=== PATIENT | female | born 1980 | race Caucasian/White ===

== ENCOUNTER 2021-01-28 07:19 | Day surgery (SDC) | payer BC ==
[~2021-01-28 07:19] MED LIST: Bupivacaine 0.5% 30 ML SDV ONE; Povidone-Iodine 10% Soln 118.25 ML Bottle ONE
[2021-01-28] MEDS ORDERED: Lactated Ringers 1,000 ML IV SCH (07:45)
[2021-01-28] MEDS: Nozin Nasal Sanitizer NASBOTH SCH ×3 (08:09→20:19)
[2021-01-28] MEDS ORDERED: ceFAZolin 2 GM in Premix Bag 1 BAG IV ONE (08:30)
[2021-01-28] MEDS ORDERED: fentaNYL 100 MCG/2 ML SDV ONE (08:37)
[2021-01-28] MEDS ORDERED: Propofol 200 MG/20 ML SDV ONE ×2 (08:37→09:58)
[2021-01-28] MEDS ORDERED: Midazolam 1 MG/ML 2 ML SDV ONE ×2 (08:38→10:03)
[2021-01-28] MEDS ORDERED: Lactated Ringers 1,000 ML ONE (10:54)
[2021-01-28] MEDS ORDERED: Acetaminophen/HYDROcodone 325-5 MG Tab PO PRN (11:09)
[2021-01-28] MEDS ORDERED: Ondansetron 4 MG/2 ML SDV IVPUSH PRN (11:09)
[2021-01-28] MEDS ORDERED: Morphine 2 MG/ML SYRINGE IVPUSH PRN (11:09)
[2021-01-28] MEDS ORDERED: Acetaminophen 325 MG Tab PO PRN (11:09)
[2021-01-28] MEDS ORDERED: Ketorolac 30 MG/ML SDV IVPUSH PRN (11:09)
[2021-01-28] MEDS ORDERED: Sodium Chloride 0.9% 1,000 ML IV SCH (11:15)
[2021-01-28] MEDS: Acetaminophen/oxyCODONE 325-5 MG Tab PO PRN ×3 (12:09→20:20)
--- NOTE | 2021-01-28 15:07 | CR ---
Knee 1V or 2V Rt CLINICAL HISTORY: Arthroplasty FINDINGS: Patient is status post the medial hemiarthroplasty. Components appear well seated. There is intra-articular and subcutaneous air.
[2021-01-28] MEDS: ceFAZolin 1 GM in Premix Bag 1 BAG IV SCH (16:16)
[2021-01-28] MEDS: Docusate Sodium 100 MG Cap PO SCH (20:21)
[2021-01-29] MEDS: Acetaminophen/oxyCODONE 325-5 MG Tab PO PRN ×5 (00:42→17:17)
[2021-01-29] MEDS: ceFAZolin 1 GM in Premix Bag 1 BAG IV SCH ×2 (00:43→10:00)
[2021-01-29 07:21] VITALS: BP 107/62; PULSE 66
[2021-01-29] MEDS ORDERED: Non-Formulary Medication 1 Each (Progesterone, Micronized [Progesterone] 100 MG Capsule) PO SCH (09:00)
[2021-01-29] MEDS ORDERED: Enoxaparin 30 MG/0.3 ML Syringe SUBCUT SCH (09:00)
[2021-01-29] MEDS ORDERED: Sertraline 50 MG Tab PO SCH (09:00)
[2021-01-29] MEDS: Docusate Sodium 100 MG Cap PO SCH (09:59)
[2021-01-29] MEDS: Nozin Nasal Sanitizer NASBOTH SCH (10:00)
--- NOTE | 2021-01-29 12:23 | PCM.DCSUM1 ---
Discharge Summary - Hospital Course Brief History: Patient is a pleasant 40 y/o female, chronic right knee pain with symptoms refractory to conservative management. Xrays revealed osteoarthritic changes of the medial compartment, well preserved spacing of the lateral and patellofemoral compartments. Elected to undergo a partial knee arthroplasty of the medial compartment. Tolerated surgery well with no complications. No acute events post-operatively. Discharged to home with outpatient physical therapy orders. Diagnosis: Stroke: No Modified [place] Scale: No Symptoms at All Modified [place] Scale Score: 0 - Discharge Data Discharge Date: 01/29/21 Discharge Disposition: Home, Self-Care 01 Condition: Good - Referral to Home Health Date of Face to Face Encounter: 01/29/21 Reason for Homebound Status: motivated to go home. Independent with ADLs Primary Care Physician: Paradise Rojas MD - Discharge Diagnosis/Problem(s) (1) Status post right partial knee replacement SNOMED Code(s): 806306586, [id number], [id number], [id number] ICD Code: Z96.651 - PRESENCE OF RIGHT ARTIFICIAL KNEE JOINT Status: Acute Current Visit: Yes - Patient Summary/Data Operative Procedure(s) Performed: right partial knee medial compartment arthroplasty Consults: Consultations 01/28/21 11:09 Consult to Case Management/Military Logistics Specialist [CONS] Routine Comment: Physician Instructions: Service(s) to be Consulted: Case Management Reason for Consult: Plan for Discharge OT Evaluation and Treatment [CONS] Routine Please Evaluate and Treat. OT Reason for Consult: ADL's Special Instructions: s/p right medial partial knee arthroplasty This query below is only for informational purposes and is not editable. PT Evaluation and Treatment [CONS] Routine Please Evaluate and Treat. PT Reason for Consult: Post op Ortho Surgery Special Instructions: s/p right medial partial knee arthroplasty This query below is only for informational purposes and is not editable. PT Evaluation and Treatment [CONS] Routine Please Evaluate and Treat. PT Reason for Consult: Post op Ortho Surgery Knee Pending Discharge: Yes, 1- 2 days Special Instructions: Schedule first outpatient PT appointment in 3-5 day post discharge. This query below is only for informational purposes and is not editable. Hospital Course: Patient is a pleasant 40-year-old female, status post right knee medial compartment arthroplasty. Patient tolerated surgery well with no complications. No acute events during the postoperative hospitalization. Patient was hemodynamically stable throughout hospital stay, vitals remained within acceptable limits. Postop day #1 hemoglobin stable at 12.0. White count slightly elevated at 11.4. Patient denied subjective fevers, chills, fatigue, dyspnea, nor chest pain. Has been using incentive spirometer. Patient does take naltrexone per baseline. This medication was held postoperatively to allow for adequate utilization of pain control medications. Did initially have some nausea with administration of Percocet, but this impr jude when medication was administered with food. Patient tolerated regular diet well. Denied any further episodes of nausea or emesis. Patient participated in physical therapy daily while hospitalized. Patient's ambulation abilities progressed nicely, utilizing four-wheel walker and ambulating up to 100 ft. Was able to safely demonstrate ability to complete stairs with therapy prior to discharge, as patient has 19 stairs in her house. Demonstrated competency with transfers from bed to chair. Demonstrated competency completing ADLs with minimal assistance. IV was saline locked the evening of surgery. Dressing change performed postop day #1 by orthopedic provider. Exam: R LE neurovascular intact. Posterior tibial pulse, 2+. Negative Homans sign. Postoperative diffuse swelling of knee, extending into calf. No significant pedal edema. Minimal ecchymosis along medial knee and calf. Incision is well approximated, steristrips intact above incision with mild dried doe inage. No surrounding erythema nor active drainage. Mild warmth to touch of knee. ROM: 4-60. - Patient Instructions Diet: Regular Diet as Tolerated Activity: Apply Ice, Elevate Extremity, Full Weight Bearing, No Strenuous Activities Driving: Do Not Drive Showering/Bathing: Shower in AM Wound/Incision Care: Keep Operative Site/Wound Site Clean and Dry, Change Dressing Daily (leave dressing on through 01/30/21. May then remove for shower. If no active drainage or irritation, does not need to change dressing daily. ) Notify Provider of: Fever, Increased Pain, Swelling and Redness, Drainage - Discharge Plan *PRESCRIPTION DRUG MONITORING PROGRAM REVIEWED*: Yes *COPY OF PRESCRIPTION DRUG MONITORING REPORT IN PATIENT JESSICA: Not Applicable Prescriptions/Med Rec: Aspirin [Aspirin EC] 325 mg PO BID #60 Acetaminophen/oxyCODONE [Percocet 325-5 MG] 1 - 2 tab PO Q6HR PRN #40 tab PRN Reason: Pain Home Medications: Home Meds Cholecalciferol (Vitamin D3) [Vitamin D3] 5,000 unit PO DAILY 05/12/19 [History] Progesterone, Micronized [Progesterone] 100 mg PO DAILY 05/12/19 [History] Sertraline [Zoloft] 100 mg PO DAILY 05/12/19 [History] Naltrexone 50 mg PO DAILY 01/03/21 [History] Progesterone/Testosterone 1 trouche PO DAILY 01/28/21 [History] Vit A/D3/E/Iod/Zinc/Selen/Herb [Medcaps T3 Capsule] 1 tab PO DAILY 01/28/21 [History] Acetaminophen/oxyCODONE [Percocet 325-5 MG] 1 - 2 tab PO Q6HR PRN #40 tab 01/29/21 [Rx] Aspirin [Aspirin EC] 325 mg PO BID #60 01/29/21 [Rx] Oxygen Therapy Mode: Room Air Patient Handouts: Preventing Problems After Surgery, How to Prevent Constipation After Surgery, Partial Knee Replacement, Care After Referrals: Yogesh Taylor, PT [Physical Therapist] - 02/05/21 1:00 pm (Please arrive 15 minutes early to register for your appointment.) Warren Lee PA [Ordering Only Provider] - 02/12/21 1:00 pm (Please arrive 15 minutes early to register for your appointment.) - Discharge Summary/Plan Comment DC Time >30 min.: No Total # of Minutes for Discharge Time: 20 Discharge Summary/Plan Comment: -Discharge to home this afternoon. Outpatient PT has been arranged -Prescription sent for pain control: 5mg-325mg Percocet, 1-2 tabs PO q6 hrs prn for pain. Instructed to discontinue home-Naltrexone while on this medication. Wait 3-4 days after discontinuing pain medication prior to resuming Naltrexone -Encouraged continuation of stool softener while on opioid pain medication -Educated patient on warning signs of DVT/VTE and SSI; any concerns, she should contact the clinic or visit her local ER -Educated to take 1 aspirin (81 mg or 325 mg) BID for DVT/VTE prophylaxis -Continue with Nozin spray BID -May shower; leave Steristrips on and let water run over the top. They will fall off in 5-7 days. Do not vigorously scrub incision, no submerging incision in bath water. Do not need to place dressing over incision, but may choose to do so if Steristrips are catching on clothing. -Follow up with orthopedics in 2 weeks; contact clinic with any concerns or questions that arise prior to scheduled apt. - General Info Date of Service: 01/29/21 Admission Dx/Problem (Free Text: s/p right knee partial arthroplasty Functional Status: Reports: Pain Controlled, Tolerating Diet, Ambulating (with FWW), Urinating, Incentive Spirometry - Review of Systems General: Denies: Fever, Fatigue, Malaise, Chills Pulmonary: Denies: Shortness of Breath Cardiovascular: Denies: Chest Pain, Palpitations, Lightheadedness Gastrointestinal: Reports: No Symptoms Genitourinary: Reports: No Symptoms Musculoskeletal: Reports: Leg Pain (right ), Joint Pain (right knee ), Joint Swelling (right knee ) Skin: Reports: Bruising Neurological: Reports: No Symptoms Psychiatric: Reports: No Symptoms - Patient Data Vitals - Most Recent: Last Vital Signs Temp 96.2 F L 01/29/21 07:21 Pulse 66 01/29/21 07:21 Resp 16 01/29/21 07:21 BP 107/62 01/29/21 07:21 Pulse Ox 97 01/29/21 07:21 Weight - Most Recent: 171 lb Lab Results - Last 24 hrs: Laboratory Results - last 24 hr 01/29/21 Range/Units 05:54 WBC 11.4 H (4.5-11.0) K/uL RBC 4.07 (3.30-5.50) M/uL Hgb 12.0 (12.0-15.0) g/dL Hct 35.4 L (36.0-48.0) % MCV 87 (80-98) fL MCH 30 (27-31) pg MCHC 34 (32-36) % Plt Count 279 (150-400) K/uL Med Orders - Current: Current Medications Acetaminophen (Acetaminophen 325 Mg Tab) 650 mg PO Q4H PRN PRN Reason: Pain/Fever Hydrocodone Bitart/Acetaminophen (Acetaminophen/Hydrocodone 325-5 Mg Tab) 1 tab PO Q4H PRN PRN Reason: Pain (mild 1-3) Bandage/Support Products (Nozin Nasal [employer]) 1 applic NASBOTH BID KAMI Last Admin: 01/29/21 10:00 Dose: 1 applic Documented by: Docusate Sodium (Docusate Sodium 100 Mg Cap) 100 mg PO BID [facility] Last Admin: 01/29/21 09:59 Dose: 100 mg Documented by: Enoxaparin Sodium (Enoxaparin 30 Mg/0.3 Ml Syringe) 30 mg SUBCUT DAILY [facility] Last Admin: 01/29/21 09:58 Dose: 30 mg Documented by: Sodium Chloride (Normal Saline) 1,000 mls @ 125 mls/hr IV ASDIRECTED [facility] Ketorolac Tromethamine (Ketorolac 30 Mg/Ml Sdv) 15 mg IVPUSH Q8H PRN PRN Reason: Breakthrough Pain Stop: 02/01/21 11:10 Last Admin: 01/28/21 13:42 Dose: 15 mg Documented by: Morphine Sulfate (Morphine 2 Mg/Ml Syringe) 1 mg IVPUSH Q1H PRN PRN Reason: Breakthrough Pain Last Admin: 01/28/21 14:41 Dose: 1 mg Documented by: Non-Formulary Medication (Progesterone, Micronized [Progesterone]) 100 mg PO DAILY [facility] Progesterone/Testosterone Trouche Ptom 0 trouche BUCCAL BEDTIME [facility] Ondansetron HCl (Ondansetron 4 Mg/2 Ml Sdv) 4 mg IVPUSH Q6H PRN PRN Reason: Nausea/Vomiting Oxycodone/Acetaminophen (Acetaminophen/Oxycodone 325-5 Mg Tab) 1 - 2 tab PO Q4H PRN PRN Reason: Pain Last Admin: 01/29/21 09:16 Dose: 2 tab Documented by: Sertraline HCl (Sertraline 50 Mg Tab) 100 mg PO DAILY [facility] Last Admin: 01/29/21 09:58 Dose: 100 mg Documented by: Discontinued Medications Bandage/Support Products (Nozin Nasal [employer]) 1 applic NASBOTH BID [facility] Last Admin: 01/28/21 14:55 Dose: Not Given Documented by: Bupivacaine HCl (Bupivacaine 0.5% 30 Ml Sdv) Confirm Administered Dose 30 ml .ROUTE .STK-MED ONE Stop: 01/28/21 06:50 Fentanyl (Fentanyl 100 Mcg/2 Ml Sdv) Confirm Administered Dose 100 mcg .ROUTE .STK-MED ONE Stop: 01/28/21 08:38 Cefazolin Sodium/Dextrose 2 gm (/ Premix) 50 mls @ 100 mls/hr IV ONETIME ONE Stop: 01/28/21 08:59 Last Admin: 01/28/21 09:35 Dose: 100 mls/hr Documented by: Lactated Ringer's (Ringers, Lactated) 1,000 mls @ 75 mls/hr IV ASDIRECTED [facility] Last Admin: 01/28/21 08:03 Dose: 75 mls/hr Documented by: Lactated Ringer's (Ringers, Lactated) Confirm Administered Dose 1,000 mls @ as directed .ROUTE .STK-MED ONE Stop: 01/28/21 10:55 Cefazolin Sodium/Dextrose 1 gm (/ Premix) 50 mls @ 100 mls/hr IV Q8H [facility] Stop: 01/29/21 09:29 Last Admin: 01/29/21 10:00 Dose: 100 mls/hr Documented by: Midazolam HCl (Midazolam 1 Mg/Ml 2 Ml Sdv) Confirm Administered Dose 2 mg .ROUTE .STK-MED ONE Stop: 01/28/21 08:39 Midazolam HCl (Midazolam 1 Mg/Ml 2 Ml Sdv) Confirm Administered Dose 2 mg .ROUTE .STK-MED ONE Stop: 01/28/21 10:04 Povidone Iodine (Povidone-Iodine 10% Soln 118.25 Ml Bottle) Confirm Administered Dose 1 ml .ROUTE .STK-MED ONE Stop: 01/28/21 06:50 Last Admin: 01/28/21 10:17 Dose: 30 ml Documented by: Propofol (Propofol 200 Mg/20 Ml Sdv) Confirm Administered Dose 200 mg .ROUTE .STK-MED ONE Stop: 01/28/21 08:38 Propofol (Propofol 200 Mg/20 Ml Sdv) Confirm Administered Dose 200 mg .ROUTE .ST K-MED ONE Stop: 01/28/21 09:59 - Exam Quality Assessment: Reports: DVT Prophylaxis General: Reports: Alert, Oriented, Cooperative, No Acute Distress Extremities: No Pedal Edema, Joint Swelling (right knee ), Leg Pain (right ), Limited Range of Motion (right knee, due to postoperative swelling, bulky dressing, and pain ). No: Abhi's Sign Skin: Reports: Dry, Intact, Ecchymosis Wound/Incisions: Reports: Healing Well, Dressing Dry and Intact, No Drainage Neurological: Reports: No New Focal Deficit Psy/Mental Status: Reports: Alert, Normal Affect, Normal Mood
[2021-01-29] MEDS ORDERED: PROGESTERONE BUCCAL SCH (21:00)
[2021-01-29] MEDS ORDERED: TESTOSTERONE BUCCAL SCH (21:00)
--- NOTE | 2021-02-11 21:13 | OR ---
DATE OF PROCEDURE: 01/28/2021 SURGEON: Luiz De Souza MD PREOPERATIVE DIAGNOSES: 1. Osteoarthritis, medial compartment, right knee. 2. Chondromalacia, trochlea, grade 2 and 3. PROCEDURE: Right medial unicompartmental arthroplasty using [employer] ZUK components with a size D femur, size 2 tibia and 8 mm polyethylene. DICTATING MACHINE TYPIST: SYLVESTER Phillips. ANESTHESIA: Spinal with sedation. INDICATIONS: Jerri is a 40-year-old female who has had persistent difficulty with her right knee for the past few years. She has tried multiple conservative measures including activity modification, physical therapy, and injections. Imaging reveals only moderate medial collapse; however, MRI shows areas of full-thickness cartilage loss in the medial femoral condyle and subchondral changes. She therefore presents for medial unicompartmental arthroplasty as it was felt that arthroscopic and/or osteochondral grafting would be insufficient or inappropriate for her condition. Risks, benefits, potential complications of the procedure were discussed. surgical assistant certified, surgical services of a physician clinical lab assistant were utilized for skilled retraction, exposure, leg manipulation and wound closure. DESCRIPTION OF PROCEDURE: After adequate anesthesia was obtained, the patient placed supine with a tourniquet about the right upper thigh. Right leg was prepped and draped in a sterile fashion. Leg was exsanguinated and tourniquet inflated to 300 mmHg pressure. A longitudinal incision was made just medial of midline over the patella and carried down through the subcutaneous tissue. A medial patellar arthrotomy was performed from the tibial tubercle to the insertion of the VMO. Portion of the fat pad was excised for visualization. Anterior horn of the meniscus is excised. The knee was flexed and articular surfaces are inspected which reveals area of grade 4 full-thickness loss on the majority of the weightbearing surface of the medial femoral condyle. Further evaluation of the knee revealed a smooth patella. She did however have an area of grade 2 and early grade 3 changes in the central trochlea measuring just over a centimeter in diameter with some loose articular flaps around the periphery. The decision was made to proceed with the unicompartmental arthroplasty. With the knee flexed, the anterior lip of the tibial plateau was resected with an oscillating saw. The knee was extended, and the extramedullary alignment jig was placed, aligned and secured to the tibia and femur. Distal femoral cut was made. This portion of the guide was removed. The knee was flexed and the proximal tibia was then resected with a combination of reciprocating and oscillating saws. Remaining portion of the medial meniscus was excised. Femur was sized to size D component. D cutting guide was secured. Peg holes were drilled and remaining cuts were made. This was removed and a trial femoral component was placed with excellent fit. The femur was sized to a #2 component. Base plate was tapped into position and secured with a small pin. Peg holes were drilled and trial reduction was then made with 8 mm polyethylene. This provided full extension, excellent flexion and good balance in both flexion and extension with a 2 mm gap. Just slightly tight with a 3 mm gap. Trials were removed and the knee was thoroughly irrigated with pulse lavage. Bone surfaces were dried. Components were cemented in place. Excess cement was removed and the knee was held in full extension with an 8 mm trial and the 2 mm spacer as the cement cured. Knee was again taken through range of motion upon a very good balance in flexion and extension and the trial was removed. The knee was irrigated and the final polyethylene was snapped into position. The knee was irrigated with a pulse lavage followed by dilute Betadine solution which was left in place for 2 minutes and again with the pulse lavage. The trochlear lesion was lightly debrided around the periphery with a 15 blade removing the loose articular flaps and bevelling these flush. Knee was then closed with #2 Ethibond in a running fashion in the capsular layer, 2-0 Vicryl and a running 3-0 Monocryl on the skin. Steri-Strips were applied. Light compressive dressing was then placed. The patient tolerated procedure well. There were no complications. Taken from the operating room in stable condition. Luiz De Souza MD /[id number]
== END 2021-01-29 17:26 | disposition home or self-care (01) ==
LOC: JP.SDS 07:19 → JP.MS 11:09 → JP.SDS 01-29 17:26
PROVIDERS: ATTEND Specialist
DX: M17.11 Unilateral primary osteoarthritis, right knee (principal); Z79.899 Other long term (current) drug therapy; Z01.812 Encounter for preprocedural laboratory examination; Z20.822 Contact with and (suspected) exposure to COVID-19
CPT/HCPCS: 27446; 36415; 73560; 80053; 81025; 85027; 87635; 97110; 97161; 97165; 97530; 97535; A9270; C1713; C1776; J0690; J1650; J1885; J2250; J2270; J2704; J3010; J7120; J3490; U0002